=== PATIENT | female | born 1995 | race African-American/Black ===

== ENCOUNTER 2018-05-28 00:19 | Emergency (ER) | payer MEDICAID ==
[~2018-05-28] VITALS: Ht 165.1 cm; Wt 109.0 kg
[2018-05-28] MEDS ORDERED: IBUPROFEN 600MG TABLET PO NR (03:07)
[2018-05-28 04:30] VITALS: BP 108/70
== END 2018-05-28 04:50 | disposition home or self-care (01) ==
LOC: ER 00:19
DX: S16.1XXA Strain of muscle, fascia and tendon at neck level, initial encounter (principal); S00.83XA Contusion of other part of head, initial encounter; W10.8XXA Fall (on) (from) other stairs and steps, initial encounter; Y93.89 Activity, other specified; Y92.89 Other specified places as the place of occurrence of the external cause; Y99.8 Other external cause status
CPT/HCPCS: 81025; 99283